=== PATIENT | female | born 1995 | race Caucasian/White ===

== ENCOUNTER 2023-12-09 22:54 | Emergency (ER) | payer BC ==
[2023-12-09] MEDS ORDERED: Ondansetron ODT 4 MG TAB ONE (23:51)
[2023-12-09] MEDS ORDERED: Ibuprofen 200 MG TAB ONE (23:51)
[2023-12-10 00:10] LABS: Bacteria/HPF 1+ HPF (None Seen); Bilirubin Negative (Negative); Blood, Urine Trace (Negative); CAUTI Indications for Culture Fever or rigors; Clarity Clear (Clear); Glucose, Urine (Dipstick) Normal (Negative); Ketone, Urine Trace mg/dL (Negative); Leukocyte 250 Leu/uL (Negative); Nitrite Negative (Negative); Protein, Urine (Dipstick) Negative (Neg-Trace); RBC/HPF 0-3 HPF (0-3); Specific Gravity, Urine 1.006 (1.002-1.036); Squamous Epithelial 0-3 HPF (0-3); Urobilinogen Normal mg/dL (Less than 2); pH, Urine 6.5 (5.0-9.0)
[2023-12-10 00:11] LABS: Urine Culture Reflex No No
[2023-12-10 02:37] LABS: Influenza A by NAA Not Detected (NotDetected); Influenza B by NAA Not Detected (NotDetected); SARS-CoV-2 NAA Rapid Test Not Detected (NotDetected)
== END 2023-12-10 00:50 | disposition home or self-care (01) ==
LOC: ERS 22:54
DX: J18.9 Pneumonia, unspecified organism (principal)
CPT/HCPCS: 71045; 81001; Q0162